=== PATIENT | female | born 1975 | race Caucasian/White ===

== ENCOUNTER → 2016-09-25 | Outpatient (CLI) | payer BC | LOC: RAD 14:11 | PROVIDERS: ATTEND Specialist | DX: R10.9 Unspecified abdominal pain (principal); R19.07 Generalized intra-abdominal and pelvic swelling, mass and lump; D33.2 Benign neoplasm of brain, unspecified; R91.1 Solitary pulmonary nodule | CPT/HCPCS: 70470; 71260; 74177 ==

== ENCOUNTER 2016-10-06 05:59 | Day surgery (SDC) | payer BC ==
[2016-10-05 10:53] LABS: HEMATOCRIT 42.2 % (36.0-47.0); HEMOGLOBIN 13.7 g/dL (12.0-15.5); HGB HCT DIFFERENCE -1.1; MEAN CORPUSCULAR HEMOGLOBIN 29.8 pg (27.0-33.4); MEAN CORPUSCULAR HGB CONC 32.5 g/dL (32.0-36.0); MEAN CORPUSCULAR VOLUME 92 fl (80-97); RED CELL DISTRIBUTION WIDTH 14.9 % (11.5-14.0)
[2016-10-05 10:58] LABS: APPEARANCE,URINE CLEAR; BILIRUBIN,URINE NEGATIVE (NEGATIVE); GLUCOSE, URINE NEGATIVE (NEGATIVE); KETONES,URINE NEGATIVE (NEGATIVE); LEUKOCYTE ESTERASE,URINE NEGATIVE (NEGATIVE); NITRITE,URINE NEGATIVE (NEGATIVE); PROTEIN,URINE NEGATIVE (NEGATIVE); URINE SPECIFIC GRAVITY 1.004; UROBILINOGEN,URINE NEGATIVE mg/dL (<2.0)
[~2016-10-06 05:59] MED LIST: LACTATED RINGERS 1000 ML IV PRN; LIDOCAINE 0.5% INJ-PF (5 MG/ML) 50 ML SDV SUBCUT PRN
[2016-10-06] MEDS ORDERED: LIDOCAINE 1%/EPINEPHRINE INJ 20 ML VIAL ONE (06:21)
[2016-10-06] MEDS ORDERED: BUPIVACAINE HCL 0.25 % INJ/PF (2.5 MG/1 ML) 30 ML VIAL ONE (06:21)
[2016-10-06] MEDS ORDERED: MIDAZOLAM 2 MG/2 ML INJ ONE (07:14)
[2016-10-06] MEDS ORDERED: FENTANYL CITRATE INJ/PF 100 MCG/2 ML AMPUL ONE (07:14)
[2016-10-06] MEDS ORDERED: DEXAMETHASONE SOD PHOSPHATE INJ 4 MG/1 ML VIAL ONE (07:14)
[2016-10-06] MEDS ORDERED: ONDANSETRON HCL INJ/PF 4 MG/2 ML SDV ONE (07:14)
[2016-10-06] MEDS ORDERED: ACETAMINOPHEN 100 ML IV ONE (07:15)
[2016-10-06] MEDS ORDERED: MORPHINE SULFATE 10 MG/ML INJ ONE (07:15)
[2016-10-06] MEDS ORDERED: PROPOFOL INJ 200 MG/20 ML VIAL IV ONE (07:15)
[2016-10-06] MEDS ORDERED: MORPHINE SULFATE 10 MG/ML INJ IV PRN (09:38)
[2016-10-06] MEDS ORDERED: MEPERIDINE HCL/PF INJ 25 MG/1 ML DISP.SYRIN IV PRN (09:38)
[2016-10-06] MEDS ORDERED: FENTANYL CITRATE INJ/PF 100 MCG/2 ML AMPUL IV PRN ×3 (09:38)
[2016-10-06] MEDS ORDERED: ONDANSETRON HCL INJ/PF 4 MG/2 ML SDV IV PRN (09:38)
[2016-10-06] MEDS ORDERED: DIPHENHYDRAMINE HCL 50 MG/ML VIAL IV PRN (09:38)
[2016-10-06] MEDS: FENTANYL CITRATE INJ/PF 100 MCG/2 ML AMPUL ONE ×2 (11:22→11:30)
[2016-10-06] MEDS ORDERED: SUCCINYLCHOLINE CHLORIDE INJ 200 MG/10 ML VIAL ONE (12:01)
[2016-10-06] MEDS ORDERED: OXYCODONE-ACETAMINOPHEN 5-325 MG TABLET ONE (12:09)
[2016-10-06] MEDS ORDERED: RINGERS SOLUTION,LACTATED 1,000 ML IV PRN (12:11)
[2016-10-06] MEDS ORDERED: HYDROMORPHONE HCL INJ/PF 2 MG/ML AMPULE INJ PRN (12:12)
[2016-10-06] MEDS ORDERED: IBUPROFEN 800 MG TABLET PO PRN (12:13)
[2016-10-06] MEDS ORDERED: OXYCODONE-ACETAMINOPHEN 5-325 MG TABLET PO PRN ×2 (12:13→12:14)
[2016-10-06] MEDS ORDERED: PROMETHAZINE HCL INJ 25 MG/1 ML VIAL ONE (12:19)
[2016-10-06] MEDS ORDERED: PROMETHAZINE HCL INJ 25 MG/1 ML VIAL IV PRN (12:29)
[2016-10-06 14:19] VITALS: BP 122/74
--- NOTE | 2016-10-13 10:33 | Operative Report ---
Operative Report DATE OF SURGERY: 10/06/16 OPERATION: Operative L/S with BTL with Filschie Clips, EUA, Paracervical Block, Hysteroscopy, D&C ANESTHESIA: GA COMPLICATIONS: unable to perform Endometrial Ablation PROCEDURE: Preoperative Diagnosis: [Multiparity, Undesired fertility, Menorrhagia] Postoperative Diagnosis: PUMA Procedure: EUA, Laparoscopic Bilateral Tubal Ligation wtih Filschie clips, Paracervical Block,Hysteroscopy, Dilation and Curettage Anesthesia: [Ruperto Hong MD, David Gold CRNA] Anesthesia: GA UOP: 100ml IVF: 1000ml EB: less than 10ml Specimens: [endometrial currettings] Complications: None Findings:[small anteverted uteus with minimal desent, cervical stenosis status post CKC in the past, less of cervix posteriorly noted, extreme right angle from cervix to uterus noted to upon attempt at dilation and sounding the uterus , uterus sounded to 6cm with cervical length 4cm, Hysteroscopy perfomed with difficult to obtain entry to cavity due to noted above with normal appearing cavity, Extensive adhesions of the omentum to the anterior abdominal wall and adhesion noted from uterus to anterior abdominal wall ] Indications: 41yo with undesired future fertility and menorrhagia. Her hsuband has a vasectomy. She desires surgical management for menorrhagia due to failed medical management. Risk/benefits/alternatives reviewed with the patient and she desires to proceed with Novasure Endometrial ablation with tubal sterilization. Procedure: The patient was taken to the operating room where general anesthesia was obtained without difficulty. The patient was then examined under anesthesia with findings as noted above with a small anteverted uterus. She was then placed in dorsal supine lithotomy position and prepped and draped in the normal sterile fashion. A sponge stick was placed into the patient's vagina for uterine manipulation. Attention was then turned to the patient's abdomen where a 5 mm infraumbilical skin incision was then made. The Optiview trocar with 0 laparoscope was then advanced without difficulty under direct visualization with the Optiview trocar. This was performed while tenting the abdominal wall and these will fashion. Intraperitoneal placement was confirmed by the direct visualization. Pneumoperitoneum was then obtained with approximately 4 L carbon dioxide gas. Survey of the patient's abdomen and pelvis revealed findings as noted above. A second skin incision was then made approximately 3 cm superior 4 cm medial to the anterior superior iliac spine on the left and then a third skin incision was made in the same location on the patient's right side. These incisions were made under direct visualization with the laparoscope. The second and third trochars were then advanced under direct visualization of the laparoscope at the sites. The right fallopian tube was then identified and followed out to the fimbriated end and the Filschie clip was applied in the mid ampullae portion of the fallopian tube. The right ovary was noted to be normal and vasculature remained intact to this ovary. Attention was then turned to the left adnexa at which time the left fallopian tube was identified and followed out to the fimbriated end and the Filschie clip was applied to the mid ampullae portion of the left fallopian tube. The left ovary was noted to be normal and vasculature intact to this ovary. terine cornual thus removing the left fallopian tube in its entirety. All operative sites were visualized and noted to be hemostatic. The 2 additional trochars were then removed under direct visualization. The skin at all trocar sites were closed with 3-0 Monocryl in a subcuticular fashion with overlying Dermabond. No antibiotics were indicated for this procedure. After completion of skin closure of the trocar sites attention was then turned to the vagina where the sponge stick uterine manipulator was removed. A speculum was placed in the vagina. The anterior cervix was grasped with a single-tooth tenaculum and the uterus sounded to 6 cm after paracervical block was performed with 8 mL of 1% lidocaine with epinephrine. Sequential dilators were then used to dilate the cervix to accommodate the hysteroscope. The hysteroscope was then gently advanced into the uterine cavity in the usual fashion but with difficulty due to findings as noted above. The hysteroscope was then removed.. At this time gentle curettage was performed until a gritty texture was noted. All instruments were removed from the patient's cervix and vagina. Silver nitrate was applied to the tenaculum site for hemostasis. Novasure not performed due to findings as noted above and uterine cavity liength not long enough to perform Novasure and Novasure unsafe due to findings as noted above. Sponge lap needle and instrument counts are correct 2. No perioperative antibiotics were given as is not indicated for this procedure. The patient tolerated the procedure well and was taken to the recovery area awake and in stable condition.
== END 2016-10-06 14:05 | disposition home or self-care (01) ==
LOC: OROUT 05:59
PROVIDERS: ATTEND Student in an Organized Health Care Education/Training Program
PROC: 0UL74CZ Occlusion of Bilateral Fallopian Tubes with Extraluminal Device, Percutaneous Endoscopic Approach (ICD-10-PCS; principal; 2016-10-06 08:00)
PROC: 0UDB8ZX Extraction of Endometrium, Via Natural or Artificial Opening Endoscopic, Diagnostic (ICD-10-PCS; 2016-10-06 08:00)
DX: Z30.2 Encounter for sterilization (principal); N92.4 Excessive bleeding in the premenopausal period; F17.210 Nicotine dependence, cigarettes, uncomplicated; E66.9 Obesity, unspecified; E07.9 Disorder of thyroid, unspecified; Z88.0 Allergy status to penicillin; Z68.38 Body mass index [BMI] 38.0-38.9, adult
CPT/HCPCS: 36415; 85027; 81025; 81001; 88305 ×2; 58671; 58558; J2250; J1100; J3010; J3490; J2270; J1170; J2550; J0330; J2405; J2704; J0131; 851

== ENCOUNTER → 2016-11-22 | Outpatient (CLI) | payer BC | LOC: RAD 15:10 | PROVIDERS: ATTEND Specialist | DX: E07.9 Disorder of thyroid, unspecified (principal) | CPT/HCPCS: 76536 ==

== ENCOUNTER 2017-09-13 07:39 | Emergency (ER) | payer BC ==
[2017-09-13] MEDS ORDERED: NORMAL SALINE 500 ML IV ONE (08:20)
[2017-09-13] MEDS ORDERED: KETOROLAC TROMETHAMINE INJ/PF 30 MG/1 ML SDV IV ONE (08:20)
[2017-09-13] MEDS ORDERED: ONDANSETRON HCL INJ/PF 4 MG/2 ML SDV IV ONE (08:20)
[2017-09-13 08:42] LABS: APPEARANCE,URINE CLOUDY; BILIRUBIN,URINE NEGATIVE (NEGATIVE); COLOR,URINE YELLOW; GLUCOSE, URINE NEGATIVE (NEGATIVE); KETONES,URINE TRACE mg/dL (NEGATIVE); LEUKOCYTE ESTERASE,URINE NEGATIVE (NEGATIVE); NITRITE,URINE NEGATIVE (NEGATIVE); PROTEIN,URINE 30 mg/dL (NEGATIVE); URINE SPECIFIC GRAVITY 1.021; UROBILINOGEN,URINE NEGATIVE mg/dL (<2.0)
--- NOTE | 2017-09-13 09:00 | ER Document Report ---
ED General - General Chief Complaint: Abdominal Pain Stated Complaint: ABDOMINAL PAIN Time Seen by Provider: 09/13/17 08:09 Mode of Arrival: Ambulatory Information source: Patient, Relative Notes: Patient is a 41-year-old obese white female comes emergency room with sudden onset of left-sided abdominal pain with vomiting. Patient states it woke her up out of sleep about 5 AM this morning. She has never had anything like this happen before. She denies any sick contacts or any bad food. states that when she vomits the is a large amount until the last 2 times it is now just dry heaving. Also states that she becomes very diaphoretic and clammy. Patient does state that about a year ago she had a attempt for a tubal ligation which she states was not complete because she has large amount of scar tissue in the lower left side of the abdomen and was told that they could not get through it at that time. They are furthermore going to do a second attempt at some other time. Patient states she ate the last time was last evening between 9 and 10 PM. And currently the only medication she is taking is over-the- counter B12. She denies any history of pernicious anemia though. TRAVEL OUTSIDE OF THE [place] IN LAST 30 DAYS: No - HPI Patient complains to provider of: Sudden onset of vomiting Onset: Just prior to arrival Onset/Duration: Sudden Quality of pain: Achy, Sharp, Stabbing Severity: Moderate Pain Level: 3 Context: Left-sided abdominal pain Associated symptoms: Chills, Nausea, Vomiting Exacerbated by: Denies - Nothing Relieved by: Denies, Other - Comes in waves Similar symptoms previously: No Recently seen / treated by doctor: No - Related Data Allergies/Adverse Reactions: Penicillins Allergy (Verified 09/13/17 07:41) Past Medical History - General Information source: Patient, Relative - Social History Smoking Status: Current Every Day Smoker Cigarette use (# per day): Yes - Half-pack a day Chew tobacco use (# tins/day): No Smoking Education Provided: Yes Frequency of alcohol use: Rare Drug Abuse: None Lives with: Family, Spouse/Significant other Family History: Reviewed & Not Pertinent - Past Medical History Cardiac Medical History: Denies: Hx Coronary Artery Disease, Hx Heart Attack, Hx Hypertension Pulmonary Medical History: Denies: Hx Asthma, Hx Bronchitis, Hx COPD, Hx Pneumonia Neurological Medical History: Denies: Hx Cerebrovascular Accident, Hx Seizures Musculoskeltal Medical History: Denies Hx Arthritis - Immunizations Hx Diphtheria, Pertussis, Tetanus Vaccination: Yes Review of Systems - Review of Systems Constitutional: No symptoms reported EENT: No symptoms reported Respiratory: No symptoms reported Gastrointestinal: Abdominal pain, Nausea, Vomiting, Last bowel movement - Yesterday afternoon normal consistency Genitourinary: No symptoms reported Female Genitourinary: No symptoms reported Musculoskeletal: No symptoms reported Skin: No symptoms reported Hematologic/Lymphatic: No symptoms reported Neurological/Psychological: No symptoms reported -: Yes All other systems reviewed and negative Physical Exam - Vital signs Vitals: Temp Pulse Resp BP Pulse Ox 97.6 F 58 L 18 152/91 H 100 09/13/17 07:49 09/13/17 07:49 09/13/17 07:49 09/13/17 07:49 09/13/17 07:49 Interpretation: Hypertensive - General General appearance: Alert, Other - Ill-appearing - HEENT Head: Normocephalic, Atraumatic Eyes: Normal Mouth/Lips: Normal. No: Angioedema, Caries, Dental fracture, Laceration, Lesions, Other Mucous membranes: Dry Pharynx: Normal Neck: Normal - Respiratory Respiratory status: No respiratory distress Chest status: Nontender Breath sounds: Normal. No: Decreased air movement, Nonproductive cough, Productive cough, Rales, Rhonchi, Stridor, Wheezing, Other - Cardiovascular Rhythm: Regular Heart sounds: Normal auscultation Murmur: No - Abdominal Inspection: Healed incision, Obese Distension: No distension. No: Distended, Tympanitic, Fluid wave, Distended bladder, Other Bowel sounds: Normal Tenderness: Tender, Other - Examination patient's abdomen show no specific areas of tenderness. There is some vague tenderness though in the left middle quadrant area. - Neurological Neuro grossly intact: Yes Cognition: Normal Orientation: AAOx4 [place] Coma Scale Eye Opening: Spontaneous [place] Coma Scale Verbal: Oriented [place] Coma Scale Motor: Obeys Commands [place] Coma Scale Total: 15 Speech: Normal - Skin Skin Temperature: Warm Skin Moisture: Moist Skin Color: Pale Course - Vital Signs Vital signs: Temp Pulse Resp BP Pulse Ox 97.6 F 58 L 18 152/91 H 100 09/13/17 07:49 09/13/17 07:49 09/13/17 07:49 09/13/17 07:49 09/13/17 07:49 - Laboratory Result Diagrams: 09/13/17 08:45 09/13/17 08:45 Laboratory results interpreted by me: 09/13/17 09/13/17 09/13/17 08:10 08:45 08:45 WBC 15.5 H RDW 14.3 H Absolute Neutrophils 11.4 H Chloride 109 H Carbon Dioxide 19 L Glucose 115 H Calcium 10.3 H Urine Protein 30 H Urine Ketones TRACE H Urine Blood LARGE H - Diagnostic Test Radiology reviewed: Reports reviewed - CT of the abdomen and pelvis without contrast showed patient has a 2 mm stone in the proximal left ureter with mild hydronephrosis of the left kidney. - Transfer of Care Notes: 09/13/17 09:48 Patient received Toradol and almost had instant relief of her pain. The CT did show a 2 mm stone in the proximal left ureter with some mild hydronephrosis. Patient's discomfort as stated went away with the Toradol she right now is almost 100% pain-free at this point we can send patient home on nausea medication, pain medication, Flomax, and an antibiotic. Currently we do not have a urologist mason apprentice we will refer patient over to the urologist office here in [facility]. Discharge - Discharge Clinical Impression: Ureterolithiasis Hydronephrosis Qualifiers: Hydronephrosis type: unspecified Qualified Code(s): N13.30 - Unspecified hydronephrosis Condition: Good Disposition: HOME, SELF-CARE Instructions: Kidney Stone ([facility]) Additional Instructions: Home and rest. Medications prescribed. As we discussed [place] that is just coming out of the kidney and chance of getting more severe are possible. You on the medications we discussed a nausea medication antibiotic, pain medication and medications dilate your ureter. As long as we can handle your pain and vomiting you are able and possible to pass the 2 mm stone. If for any reason he is hung up in the pain gets more severe if you cannot control the vomiting or you spike a fever those I think you really need to return to ER for. However should you have any other concerns return to ER for recheck. I am giving you the name of a local urologist here in [facility] my understanding is they have rotation through the office but if you contact the number I am giving you you may set up an appointment with them. Prescriptions: Ondansetron [Zofran Odt 4 mg Tablet] 4 mg PO Q4HP PRN #20 tab.rapdis PRN Reason: Fluconazole [Diflucan] 150 mg PO ONCE PRN #1 tablet PRN Reason: Hydrocodone/Acetaminophen [Bastian 7.5-325 mg Tablet] 1 tab PO Q4 PRN #20 tablet PRN Reason: Promethazine HCl [Phenergan 25 mg Tablet] 1 - 2 tab PO Q6H PRN #15 tablet PRN Reason: Sulfamethoxazole/Trimethoprim [Bactrim Ds Tablet] 1 each PO BID #14 tablet Tamsulosin HCl [Flomax 0.4 mg Cap.sr] 0.4 mg PO DAILY #12 cap.sr.24h Referrals: SIMI HUANG MD [ACTIVE STAFF] - Follow up as needed
[2017-09-13 09:02] LABS: ABSOLUTE BASOPHILS # (AUTO) 0.1 10^3/uL (0.0-0.2); ABSOLUTE EOSINOPHILS # (AUTO) 0.1 10^3/uL (0.0-0.6); ABSOLUTE LYMPHOCYTES (AUTO) 2.7 10^3/uL (0.5-4.7); ABSOLUTE MONOCYTES (AUTO) 1.1 10^3/uL (0.1-1.4); ABSOLUTE NEUT (AUTO) 11.4 10^3/uL (1.7-8.2); BASOPHILS % (AUTO) 0.6 % (0-2); EOSINOPHILS % (AUTO) 0.6 % (0-6); HEMATOCRIT 45.2 % (36.0-47.0); HEMOGLOBIN 15.3 g/dL (12.0-15.5); LYMPHOCYTES % (AUTO) 17.7 % (13-45); MEAN CORPUSCULAR HEMOGLOBIN 30.3 pg (27.0-33.4); MEAN CORPUSCULAR HGB CONC 33.8 g/dL (32.0-36.0); MEAN CORPUSCULAR VOLUME 90 fl (80-97); MONOCYTES % (AUTO) 7.3 % (3-13); PLATELET COUNT 418 10^3/uL (150-450); RED BLOOD COUNT 5.04 10^6/uL (3.72-5.28); RED CELL DISTRIBUTION WIDTH 14.3 % (11.5-14.0); SEGMENTED NEUTROPHILS % (AUTO) 73.8 % (42-78); TOTAL CELLS COUNTED % (AUTO) 100 %; WHITE BLOOD COUNT 15.5 10^3/uL (4.0-10.5)
--- NOTE | 2017-09-13 09:14 | RADIOLOGY REPORT (SQ) ---
EXAM DESCRIPTION: CT ABD/PELVIS NO ORAL OR IV COMPLETED DATE/TIME: 09/13/2017 9:03 am REASON FOR STUDY: sudden onset of abdominal left side pain Vomiting COMPARISON: 09/25/2016. TECHNIQUE: CT scan of the abdomen and pelvis performed without intravenous or oral contrast. Images reviewed with lung, soft tissue, and bone windows. Reconstructed coronal and sagittal MPR images revi ewed. All images stored on PACS. All CT scanners at this facility use dose modulation, iterative reconstruction, and/or weight based d osing when appropriate to reduce radiation dose to as low as reasonably achievable (ALARA). [facility]: Dose Right [facility]: CareDose [facility]: Dose Right [facility]: Teradose 4D [facility]: Smart High Performance Smart[employer]Building RADIATION DOSE: CT Rad equipment meets quality standard of care and radiation dose reduction techniq ues were employed. CTDIvol: 17.0 mGy. DLP: 956 mGy-cm.mGy. LIMITATIONS: None. FINDINGS: LOWER CHEST: No significant findings. No nodules or infiltrates. NON-CONTRASTED LIVER, SPLEEN, ADRENALS: Evaluation limited by lack of IV contrast. No identified sign ificant masses. PANCREAS: No masses. No peripancreatic inflammatory changes. GALLBLADDER: No identified stones by CT criteria. No inflammatory changes to suggest cholecystitis. RIGHT KIDNEY AND URETER: No suspicious masses. Assessment limited by lack of IV contrast. No signif icant calcifications. No hydronephrosis or hydroureter. LEFT KIDNEY AND URETER: No suspicious masses. Assessment limited by lack of IV contrast. 2 mm calcu irvin in the proximal ureter. Mild hydronephrosis. AORTA AND RETROPERITONEUM: No aneurysm. No retroperitoneal masses or adenopathy. BOWEL AND PERITONEAL CAVITY: No obvious masses or inflammatory changes. No free fluid. APPENDIX: Normal. PELVIS, BLADDER, AND ABDOMINAL WALL:No abnormal masses. No free fluid. Bladder normal. BONES: No significant findings. OTHER: No other significant finding. IMPRESSION: 2 MM CALCULUS IN THE PROXIMAL LEFT URETER. MILD HYDRONEPHROSIS. NO OTHER SIGNIFICANT O R ACUTE PROCESS IN THE ABDOMEN OR PELVIS. COMMENT: Quality ID # [id number]: Final reports with documentation of one or more dose reduction techniques (e.g., Automated exposure control, adjustment of the mA and/or kV according to patient size, use of iterative reconstruction technique) TECHNICAL DOCUMENTATION: JOB ID: [id number] 2234[employer]- All Rights Reserved
[2017-09-13 09:28] LABS: ALANINE AMINOTRANSFERASE 31 U/L (9-52); ALBUMIN 4.3 g/dL (3.5-5.0); ALKALINE PHOSPHATASE 67 U/L (38-126); ANION GAP 14 (5-19); ASPARTATE AMINO TRANSFERASE 16 U/L (14-36); BILIRUBIN,DIRECT 0.2 mg/dL (0.0-0.4); BILIRUBIN,TOTAL 0.6 mg/dL (0.2-1.3); BLOOD UREA NITROGEN 12 mg/dL (7-20); CALCIUM 10.3 mg/dL (8.4-10.2); CARBON DIOXIDE 19 mmol/L (22-30); CHLORIDE 109 mmol/L (98-107); GLUCOSE 115 mg/dL (75-110); LIPASE 81.3 U/L (23-300); POTASSIUM 4.1 mmol/L (3.6-5.0); SODIUM 141.5 mmol/L (137-145); TOTAL PROTEIN 7.4 g/dL (6.3-8.2)
[2017-09-13 10:13] VITALS: BP 112/66
== END 2017-09-13 10:13 | disposition home or self-care (01) ==
LOC: ER 07:39
DX: N13.2 Hydronephrosis with renal and ureteral calculous obstruction (principal); R10.9 Unspecified abdominal pain; R11.10 Vomiting, unspecified; F17.210 Nicotine dependence, cigarettes, uncomplicated
CPT/HCPCS: 99284; 96361; 96374; 96375; 36415; 83605; 83690; 85025; 81025; 80053; 81001; 74176; J1885; J2405; J7040

== ENCOUNTER 2018-05-09 05:32 | Inpatient (IN) | payer BC ==
[2018-05-02 10:31] LABS: HEMATOCRIT 43.3 % (36.0-47.0); HEMOGLOBIN 14.9 g/dL (12.0-15.5); MEAN CORPUSCULAR HEMOGLOBIN 30.6 pg (27.0-33.4); MEAN CORPUSCULAR HGB CONC 34.5 g/dL (32.0-36.0); MEAN CORPUSCULAR VOLUME 89 fl (80-97); PLATELET COUNT 386 10^3/uL (150-450); RED BLOOD COUNT 4.88 10^6/uL (3.72-5.28); WHITE BLOOD COUNT 13.7 10^3/uL (4.0-10.5)
[2018-05-02 10:33] LABS: APPEARANCE,URINE CLEAR; BILIRUBIN,URINE NEGATIVE (NEGATIVE); COLOR,URINE YELLOW; GLUCOSE, URINE NEGATIVE (NEGATIVE); KETONES,URINE NEGATIVE (NEGATIVE); LEUKOCYTE ESTERASE,URINE NEGATIVE (NEGATIVE); NITRITE,URINE NEGATIVE (NEGATIVE); PROTEIN,URINE NEGATIVE (NEGATIVE); URINE SPECIFIC GRAVITY 1.013; UROBILINOGEN,URINE NEGATIVE mg/dL (<2.0)
--- NOTE | 2018-05-02 10:38 | RADIOLOGY REPORT (SQ) ---
EXAM DESCRIPTION: CHEST PA/LATERAL COMPLETED DATE/TIME: 05/02/2018 10:21 am REASON FOR STUDY: PRE OP COMPARISON: CT chest 09/25/2016 EXAM PARAMETERS: NUMBER OF VIEWS: two views TECHNIQUE: Digital Frontal and Lateral radiographic views of the chest acquired. RADIATION DOSE: NA LIMITATIONS: none FINDINGS: LUNGS AND PLEURA: No opacities, masses or pneumothorax. No pleural effusion. MEDIASTINUM AND HILAR STRUCTURES: No masses or contour abnormalities. HEART AND VASCULAR STRUCTURES: Heart normal size. No evidence for failure. BONES: No acute findings. HARDWARE: None in the chest. OTHER: No other significant finding. IMPRESSION: NO SIGNIFICANT RADIOGRAPHIC FINDING IN THE CHEST. TECHNICAL DOCUMENTATION: JOB ID: [id number] [employer]- All Rights Reserved Reading location - IP/workstation name: [email or web address]
[2018-05-02 10:43] LABS: ALANINE AMINOTRANSFERASE 19 U/L (9-52); ALBUMIN 4.1 g/dL (3.5-5.0); ALKALINE PHOSPHATASE 62 U/L (38-126); ANION GAP 12 (5-19); ASPARTATE AMINO TRANSFERASE 14 U/L (14-36); BILIRUBIN,DIRECT 0.2 mg/dL (0.0-0.4); BILIRUBIN,TOTAL 0.6 mg/dL (0.2-1.3); BLOOD UREA NITROGEN 8 mg/dL (7-20); CALCIUM 9.5 mg/dL (8.4-10.2); CARBON DIOXIDE 22 mmol/L (22-30); CHLORIDE 108 mmol/L (98-107); GLUCOSE 87 mg/dL (75-110); POTASSIUM 4.6 mmol/L (3.6-5.0); SODIUM 141.5 mmol/L (137-145); TOTAL PROTEIN 7.3 g/dL (6.3-8.2)
--- NOTE | 2018-05-02 12:17 | EKG REPORT ---
SEVERITY:- NORMAL ECG - SINUS RHYTHM : Confirmed by: Lyndon Baxter MD 02-May-2018 12:17:16
[~2018-05-09 05:32] MED LIST changes: +CEFAZOLIN 1 GM/D5W RTU 1 GM/50 ML RTUPB IV PRN; +CLINDAMYCIN 900 MG/D5W RTU 900 MG/50 ML RTUPB IV PRN; +GENTAMICIN SULFATE 120 MG in DEXTROSE 5%-WATER 100 ML IV PRN; +SCOPOLAMINE HYDROBROMIDE 1.5 MG PATCH.TD72 TD PRN
[2018-05-09] MEDS ORDERED: ONDANSETRON HCL INJ/PF 4 MG/2 ML SDV ONE (06:34)
[2018-05-09] MEDS ORDERED: MIDAZOLAM 2 MG/2 ML INJ ONE (06:34)
[2018-05-09] MEDS ORDERED: FENTANYL CITRATE INJ/PF 250 MCG/5 ML AMPULE ONE (06:34)
[2018-05-09] MEDS ORDERED: DEXAMETHASONE SOD PHOSPHATE INJ 4 MG/1 ML VIAL ONE (06:34)
[2018-05-09] MEDS ORDERED: PROPOFOL INJ 200 MG/20 ML VIAL IV ONE (06:35)
[2018-05-09] MEDS ORDERED: ACETAMINOPHEN 1,000 MG/100 ML RTUPB IV ONE (06:35)
[2018-05-09] MEDS ORDERED: MORPHINE SULFATE 10 MG/ML INJ ONE (06:35)
[2018-05-09] MEDS ORDERED: BUPIVACAINE HCL 0.5 % INJ/PF 30 ML SDV ONE (06:52)
[2018-05-09] MEDS ORDERED: MORPHINE SULFATE 10 MG/ML INJ IV PRN (08:04)
[2018-05-09] MEDS ORDERED: DIPHENHYDRAMINE HCL 50 MG/ML VIAL IV PRN (08:04)
[2018-05-09] MEDS ORDERED: MEPERIDINE HCL/PF INJ 25 MG/1 ML DISP.SYRIN IV PRN (08:04)
[2018-05-09] MEDS ORDERED: FENTANYL CITRATE INJ/PF 100 MCG/2 ML AMPUL IV PRN ×2 (08:04)
[2018-05-09] MEDS ORDERED: PROMETHAZINE HCL INJ 25 MG/1 ML VIAL IV PRN ×2 (08:04)
[2018-05-09] MEDS ORDERED: BUPIVACAINE HCL 0.5 % INJ/PF 30 ML SDV INJ ONE (08:36)
[2018-05-09] MEDS ORDERED: FENTANYL CITRATE INJ/PF 100 MCG/2 ML AMPUL ONE ×2 (08:55→10:26)
[2018-05-09] MEDS ORDERED: ROCURONIUM BROMIDE INJ 50 MG/5 ML VIAL IV ONE (10:13)
[2018-05-09] MEDS: FENTANYL CITRATE INJ/PF 100 MCG/2 ML AMPUL IV PRN ×2 (10:26→10:40)
[2018-05-09] MEDS ORDERED: PROMETHAZINE HCL INJ 25 MG/1 ML VIAL ONE (10:26)
[2018-05-09] MEDS ORDERED: MORPHINE SULFATE 10 MG/ML INJ IM PRN (11:08)
[2018-05-09] MEDS ORDERED: OXYCODONE-ACETAMINOPHEN 5-325 MG TABLET PO PRN (11:08)
--- NOTE | 2018-05-09 11:28 | OPERATIVE REPORT E ---
Operative Report NAME: DENISE DALLAS : 1975 AGE: 42Y DATE OF SURGERY: 05/09/2018 ROOM: PREOPERATIVE DIAGNOSIS: DUB and hypermenorrhea. POSTOPERATIVE DIAGNOSIS: DUB and hypermenorrhea. PROCEDURE: Total hysterectomy with bilateral salpingectomy. SURGEON: Faye HAIRSTON MD ESTIMATED BLOOD LOSS: Approximately 500 mL. TISSUE REMOVED: Tubes and uterus. ANESTHESIA: General. DESCRIPTION OF PROCEDURE: The patient was placed in a dorsal lithotomy position, prepped and draped in a sterile fashion. A speculum was placed. The cervix was visualized and grasped with a single-tooth tenaculum. The cervix was dilated and a medium uterine manipulator was placed. Attention was turned to the abdomen, where a supraumbilical incision was made. The trocar was introduced with insufflation of the abdomen and introduction of the laparoscope. Multiple adhesions from the omentum to the anterior abdominal wall were noted. A second puncture was placed lateral to the first on the left and a 5 trocar was introduced and a third on the right and a 5 was introduced and another trocar suprailiac on the right. Robot was docked in the usual fashion. Using the robot, the adhesions were taken down until the uterus was encountered. The uterus was noted to be firmly adhered to the anterior abdominal wall and no clear planes of dissection could be discerned. The abdomen was deflated and trocar sleeves were removed. The robot was undocked prior. The incisions were closed with 0-Vicryl for the fascia and 4-0 Vicryl for the skin. A Pfannenstiel incision was then made through an existing Pfannenstiel eschar. The incision extended through the subcutaneous tissue and fascia with sharp dissection. The bowel was packed with wet saline packs and an O'Seth-O'Eron retractor was placed. The uterus was firmly adhered to the anterior abdominal wall and fascia. This was carefully dissected and the right round could be identified then and it was sutured and divided. zeinab" space was entered on the right and divided. The area was then sutured with 2-0 Vicryl. On the left, after much dissection, the left round could be identified. It was sutured and then divided. zeinab's space was entered. The pedicles were divided and then sutured with 2-0 Vicryl. Both tubes were then removed with cautery. Serial clamps were used on each side of the uterus, carefully dissecting the uterus away from the anterior abdominal wall. Each pedicle was divided and sutured with 2-0 Vicryl. This was continued down to the level of the cervix, which was cross clamped. The uterus and cervix were removed. The cuff was then closed with [id number] sutures of 2-0 Vicryl. There was some bleeding noted on the right under the right ovary and this was controlled with a [id number] suture of 2-0 Vicryl. The pelvis was irrigated with normal saline. Hemostasis was noted. The fascia was then closed with 0 Vicryl and the skin was closed with subcutaneous absorbable devorah. The patient tolerated it well and was taken to recovery in a good condition. Her urine remained clear throughout the procedure. DICTATING PHYSICIAN: Faye HAIRSTON M.D. [id number] PHY#: [id number] ID: [id number] JOB#: [id number] ACCT: [id number] cc:Faye HAIRSTON M.D. > MTDD
[2018-05-09] MEDS: IBUPROFEN 800 MG TABLET PO SCH ×2 (14:00→22:00)
[2018-05-09] MEDS ORDERED: ONDANSETRON HCL 8 MG TABLET ONE (16:14)
[2018-05-09] MEDS: DEXTROSE 5%-LACTATED RINGERS 1,000 ML IV PRN ×2 (16:24→23:33)
[2018-05-09] MEDS ORDERED: ONDANSETRON 4 MG TAB.RAPDIS PO ONE (16:30)
[2018-05-09] MEDS ORDERED: PROMETHAZINE HCL INJ 25 MG/1 ML VIAL IV SCH (17:30)
[2018-05-09] MEDS: PROMETHAZINE HCL INJ 25 MG/1 ML VIAL IV PRN (23:32)
[2018-05-10] MEDS: PROMETHAZINE HCL INJ 25 MG/1 ML VIAL IV PRN ×2 (05:39→13:32)
[2018-05-10] MEDS: IBUPROFEN 800 MG TABLET PO SCH ×2 (05:40→13:32)
--- NOTE | 2018-05-10 09:45 | PDOC DISCHARGE SUMMARY ---
General - Admit/Disc Date/PCP Admission Date/Primary Care Provider: 05/09/18 10:50 ECHO LEVINE MD Discharge Date: 05/10/18 - Discharge Diagnosis (1) Menometrorrhagia Is this a current diagnosis for this admission?: Yes (2) Pelvic pain Is this a current diagnosis for this admission?: Yes - Additional Information Discharge Diet: Regular Discharge Activity: Balance Activity w/Rest, No Driving, No Lifting/Push/Pulling , Pelvic Rest, Slowly Increase Activity, No tub bath, Walk Frequently Prescriptions: Oxycodone HCl/Acetaminophen [Percocet 5-325 mg Tablet] 2 tab PO Q4HP PRN #30 tablet PRN Reason: Ibuprofen [Motrin 800 mg Tablet] 800 mg PO Q8 #90 tablet Home Medications: Cyanocobalamin (Vitamin B-12) [Vitamin B12] 5,000 mcg IM ASDIR PRN 10/05/16 Ibuprofen [Motrin 800 mg Tablet] 800 mg PO Q8 #90 tablet 05/10/18 Oxycodone HCl/Acetaminophen [Percocet 5-325 mg Tablet] 2 tab PO Q4HP PRN #30 tablet 05/10/18 History of Present Illness Patient complains of: heavy bleeding and irregular bleeding with pelvic pain History of Present Illness: DENISE DALLAS is a 42 year old female Hospital Course Hospital Course: pt had total hysterectomy with bilateral salpingectomy. post op course is benign she is tolerating a regular diet and bowel/bladder function is normal Physical Exam - Physical Exam Vital Signs: Temp Pulse Resp BP Pulse Ox 98.2 F 84 16 107/62 97 05/10/18 07:19 05/10/18 07:19 05/10/18 07:19 05/10/18 07:19 05/10/18 07:19 Intake & Output 05/09/18 05/10/18 05/11/18 06:59 06:59 06:59 Intake Total 0 4954 1000 Output Total 2110 Balance 0 2844 1000 Weight 111.13 kg General appearance: PRESENT: no acute distress Respiratory exam: PRESENT: clear to auscultation francy GI/Abdominal exam: PRESENT: soft Result Laboratory Results: 05/02/18 09:50 05/02/18 09:50 Impressions: Chest X-Ray 05/02/18 00:00 IMPRESSION: NO SIGNIFICANT RADIOGRAPHIC FINDING IN THE CHEST. Plan Time Spent: Less than 30 Minutes
[2018-05-10] MEDS: DEXTROSE 5%-LACTATED RINGERS 1,000 ML IV PRN (11:32)
[2018-05-10 12:20] VITALS: BP 115/68
== END 2018-05-10 16:00 | disposition home or self-care (01) | DRG 743 ==
LOC: OROUT 05:32 → 2N 10:50 → OROUT 15:36
PROVIDERS: ADMIT Obstetrics & Gynecology Gynecology; ATTEND Obstetrics & Gynecology Gynecology
PROC: 0UT74ZZ Resection of Bilateral Fallopian Tubes, Percutaneous Endoscopic Approach (ICD-10-PCS; 2018-05-09)
PROC: 8E0W4CZ Robotic Assisted Procedure of Trunk Region, Percutaneous Endoscopic Approach (ICD-10-PCS; 2018-05-09)
PROC: 0UT94ZZ Resection of Uterus, Percutaneous Endoscopic Approach (ICD-10-PCS; principal; 2018-05-09 07:15)
DX: N92.1 Excessive and frequent menstruation with irregular cycle (principal); F17.210 Nicotine dependence, cigarettes, uncomplicated; Z88.0 Allergy status to penicillin; Z83.3 Family history of diabetes mellitus; Z83.49 Family history of other endocrine, nutritional and metabolic diseases
CPT/HCPCS: 36415; 71046; 80053; 81001; 81025; 840; 85027; 86850; 86900; 86901; 88307; 93005; 93010; J0131; J1100; J1580; J2250; J2270; J2405; J2550; J2704; J3010; J3490; S0119